=== PATIENT | female | born 1990 | race American Indian/Alaskan Native ===

== ENCOUNTER 2017-06-10 22:13 | Emergency (ER) | payer SELFPAY ==
--- NOTE | 2017-06-11 02:37 | Emergency Department Report ---
HPI - General Chief Complaint: Rectal Pain Time Seen by Provider: 06/11/17 02:14 - HPI HPI: Patient here reports that she is having rectal pain at 8 out of 10. She says she has had hemorrhoids 2 days. Reports small amount of bleeding in the first day but none now. Last bowel movement was today. She does have a history of hemorrhoid. She states she took [id number] pain medication but it didn't help. Patient has a history of tubal ligation and appendectomy. Denies any rectal bleeding at present. Denies any fever or chills. Denies any vaginal discharge or discharge from Rectum. ED Past Medical Hx - Past Medical History Previous Medical History?: Yes Additional medical history: HEMMORRHOIDS /STOMACH ULCER - Surgical History Past Surgical History?: Yes Hx Appendectomy: Yes Additional Surgical History: TUBAL LIGATION - Family History Family history: hypertension - Social History Smoking Status: Never Smoker Substance Use Type: None - Medications Home Medications: Home Medications Medication Instructions Recorded Confirmed Last Taken Type Hydrocortisone [Procto-Med Hc] 30 gm RC TID PRN #1 cream.appl 06/11/17 Unknown Rx traMADol [Ultram] 50 mg PO Q6HR PRN #12 tablet 06/11/17 Unknown Rx ED Review of Systems ROS: Stated complaint: HEMORROIDS Other details as noted in HPI Comment: All other systems reviewed and negative Constitutional: denies: chills, fever Eyes: denies: eye pain ENT: denies: throat pain Respiratory: no symptoms reported Cardiovascular: denies: chest pain, palpitations, edema, syncope Gastrointestinal: other (hemorrhoids). denies: abdominal pain, nausea, vomiting , diarrhea, constipation Genitourinary: denies: urgency, dysuria, frequency, hematuria, discharge, dyspareunia Musculoskeletal: denies: back pain, joint swelling, arthralgia, myalgia Skin: denies: rash Neurological: denies: headache, weakness, numbness, paresthesias, confusion, abnormal gait, vertigo Physical Exam - Physical Exam Vital Signs: Vital Signs 06/10/17 22:24 Temperature 98.5 F Pulse Rate 93 H Respiratory 20 Rate Blood Pressure 127/78 O2 Sat by Pulse 100 Oximetry General: This is a 26-year-old female well-nourished well-developed in no acute distress. Physical Exam: Head: Normocephalic, atraumatic. No abrasions, laceration or contusion Neck: Supple, no adenopathy. Full range of motion. No C-spine tenderness. No muscular tenderness Mouth: Moist, no pharyngeal exudate or erythema. Uvula is midline and oral airways patent. Tongue is normal. No trismus. No peritonsillar abscess. Eyes: Normal accommodation, bilateral pupils equal and reactive to light, normal accommodation bilaterally, bilateral EOM intact, bilateral conjunctiva and sclera without injection. Nonicteric sclera. Ear: Bilateral TMs pearly amin, bilateral EAC without any redness swelling or drainage. Bilateral tract is nontender to palpate. Abdomen: Nontender the palpation in all quadrants, no guarding or rebound tenderness. No CVA tenderness and normal bowel sounds in all quadrants. Extremity: No clubbing, cyanosis or edema. +2 pulses in all extremities. No neurovascular compromise. Capillary refill is less than 3 seconds. Good color , sensation, movement and temperature in all extremities. Skin: Clean dry and intact no rash no lesions PSYCH: Normal mood and behavior. : No rectal bleeding noted. External vaginal area normal exam. Noted external rectal hemorrhoid that is non-thrombosed. Tender to palpate. No bleeding noted. Back: No vertebral tenderness, no paraspinal tenderness, no saddle anesthesia,. Patient able to relate without any difficulties. ED Course Vital Signs 06/10/17 22:24 Temperature 98.5 F Pulse Rate 93 H Respiratory 20 Rate Blood Pressure 127/78 O2 Sat by Pulse 100 Oximetry - Reevaluation(s) Reevaluation #1: 06/11/17 03:36 Patient given Percocet 5/325 2 tablets by mouth along with Dulcolax 10 mg by mouth to treat pain and prevent constipation. Topical lidocaine placed the site. ED Medical Decision Making - Medical Decision Making ED course: Discussed with patient that she has a external hemorrhoid and she will probably need to see a surgeon for excision due to recurrence. I explained to her that she needs to increase her fluid intake and take stool softener to prevent constipation. She was given topical lidocaine to place on site for relief. Patient given Percocet 5/325 2 tablets along with Dulcolax 10 mg tablets for pain and prevention of constipation. Fiber diet encouraged. Told her to call surgeon in the morning to schedule an appointment for removal of hemorrhoid and in the meantime I will give her steroids topical cream to place on site. Patient was understanding the discharge instruction and treatment plan and discharged home with her family in stable condition. Critical care attestation.: If time is entered above; I have spent that time in minutes in the direct care of this critically ill patient, excluding procedure time. ED Disposition Clinical Impression: External hemorrhoids without complication, Anal or rectal pain Disposition: TO HOME OR SELFCARE Is pt being admited?: No Does the pt Need Aspirin: No Condition: Stable Instructions: Hemorrhoids (ED), Hemorrhoidectomy (ED) Additional Instructions: Please keep affected area clean and dry Call surgeon tomorrow to schedule an appointment for removal of hemorrhoid Take medication as prescribed Increase fiber in your diet Take stool softener to prevent constipation Prescriptions: Hydrocortisone [Procto-Med Hc] 30 gm RC TID PRN #1 cream.appl PRN Reason: Hemorrhoids traMADol [Ultram] 50 mg PO Q6HR PRN #12 tablet PRN Reason: Pain Referrals: PRIMARY CARE,MD [Primary Care Provider] - 3-5 Days ANEUDY MERLOS MD [Staff Physician] - 3-5 Days (Please call Dr. Merlos's office in the morning to schedule an appointment.) Forms: Accompanied Note, Work/School Release Form(ED)
[2017-06-11] MEDS ORDERED: PERCOCET 5/325 PO ONE (02:41)
[2017-06-11] MEDS ORDERED: XYLOCAINE TOPICAL 5% TP ONE (02:41)
[2017-06-11] MEDS ORDERED: DULCOLAX PR ONE (02:41)
[2017-06-11 03:51] VITALS: BP 124/80
== END 2017-06-11 03:50 | disposition home or self-care (01) ==
LOC: ED 22:13
DX: K64.4 Residual hemorrhoidal skin tags (principal); R10.2 Pelvic and perineal pain
CPT/HCPCS: 99282